=== PATIENT | female | born 1965 | race Caucasian/White ===

== ENCOUNTER 2022-05-22 08:35 | Inpatient (IN) ==
--- NOTE | 2022-05-14 10:37 | Anesthesiology Consultation ---
Date of Service May 14, 2022 Assessment & Plan (1) Encounter for pre-operative examination: Plan - cardiology 04/24/22 [place]: "...well-documented supraventricular tachycardia which appears to be typical AV lyubov reentry at a somewhat slow heart rate (around 130 bpm or little bit faster). This rhythm was converted with adenosine in the emergency room. She does note occasional episodes of an increased heart rate which could be SVT however we do not know her burden. Since she is asymptomatic she could go into this on a sustained basis which could be potentially risky. I discussed options including electrophysiologic study and ablation and I think it is the best option, in part because we do not know the frequency or duration of her arrhythmia. She is agreeable and I will make those arrangements. I do want to get an echocardiogram prior..." - COVID screening: Per anaesthetic technician on 05/14/2022: Travel screen negative, no known COVID-19 positive contacts or current COVID-19 related symptoms in past 2 weeks. To surgeon's discretion if preop COVID testing is needed. - Case discussed with Dr. Nolan who advised patient is acceptable to proceed without further cardiology evaluation or notation prior to surgery from his standpoint. Chart Review Chart Review: Acceptable Risk for Surgery and Patient NOT seen in Pre Admission Testing History Surgery Operation Date: 05/22/22 07:15 Proposed Procedures p Open Recurrent Ventral Hernia Repair, Component Separation, Possible Removal of Old Mesh, Possible Placement of Biological Mesh - Thomas Hopkins DO s Panniculectomy - Thomas Hopkins, Height/Weight Height: 5 ft 6 in Weight: 89.811 kg Allergies Allergy/AdvReac Type Severity Reaction Status Date / Time No Known Drug Allergies Allergy Unknown Verified 05/14/22 09:02 Medications Home Medications Medication Instructions Recorded Confirmed Last Taken Saccharomyces boulardii 250 mg 500 mg PO QAM 02/11/22 05/14/22 Unknown capsule (Daily Probiotic (S. boulardii)) vitamin B complex (B 1 tab PO QAM 02/11/22 05/14/22 Unknown Complex-Vitamin B12 tablet) phenobarbital 32.4 mg tablet 194.4 mg PO QAM 04/14/22 05/14/22 Unknown metoprolol succinate 25 mg 25 mg PO QAM 05/14/22 05/14/22 Unknown tablet,extended release 24 hr Past Medical History Medical History Epilepsy last seizure 15 [address] ago[address] Kaufman in [place]. SVT (supraventricular tachycardia) follows with Dr. Mandel Past Family History Family History Mother H/O heart artery stent Heart disease Father FH: prostate cancer Cancer Grandmother (Maternal) Heart disease Grandfather (Maternal) Heart disease Grandmother (Paternal) Heart disease Grandfather (Paternal) Heart disease Cancer Aunt Cancer Other No family history of adverse response to anesthesia Past Surgical History Surgical History History of bladder surgery Bladder lift History of cardiac radiofrequency ablation unsuccessful per pt History of colonoscopy History of hernia repair History of hysterectomy History of nephrectomy, left as a child "it wasn't functioning" - follows with [facility] in [place]. History of open reduction and internal fixation (ORIF) procedure RLE History of tubal ligation Social History Smoking Status: Current some day smoker tobacco type: cigarettes Smoking cigarettes per day: 1 or 2 on occ Do You Dip or Chew Tobacco: No Hx Alcohol Use: Yes Alcohol type: beer and wine alcohol intake frequency: a few times a week Hx Substance Use: No substance use type: does not use Lab Results Anesthesia Preop Results Results Anesthesia Widget: WBC 6.29 K/ul (4.8-10.8) 04/08/22 Hgb 15.5 g/dl (12.0-16.0) 04/08/22 Hct 46.2 % (34.1-44.9) H 04/08/22 Plt 251 K/uL (130-400) 04/08/22 Na 138 mmol/L (136-145) 04/08/22 K 4.3 mmol/L (3.5-5.1) 04/08/22 Cl 105 mmol/L (98-107) 04/08/22 CO2 25 mmol/L (21-32) 04/08/22 BUN 21 mg/dl (6-23) 04/08/22 Creat 0.78 mg/dl (0.6-1.2) 04/08/22 Glucose Level 90 mg/dl (70-99(Fasting)) 04/08/22 PT 10.3 Seconds (9.0-12.0) 04/08/22 PTT 27.8 Seconds (21.0-31.0) 04/08/22 INR 1.0 (0.9-1.1) 04/08/22 TSH 4.525 uIu/ml (0.300-4.500) H 04/08/22 Free T4 0.68 ng/dl (0.61-1.60) 04/08/22 Testing Electrocardiogram Date: 05/02/22 NSR, rate 76 bpm Possible left atrial enlargement Left axis deviation Chest X-Ray Date: 04/08/22 Lung volumes are normal. Lungs are clear. There is no pneumothorax or pleural effusion. Cardiac size is normal. Mediastinal contours are normal. There is no evidence for pulmonary edema. IMPRESSION: No acute cardiopulmonary findings. Echocardiogram Date: 04/16/22 EF 60-65% Normal LV wall motion No significant valvular disease Other Testing Abdomen pelvis CT 05/01/22 Lung bases: The heart is normal in size and without pericardial effusion. There are coronary artery calcifications. Emphysematous change is suspected. There is bibasilar scarring/atelectasis. No airspace consolidation or pleural effusion is identified. Scattered calcified granulomas are observed. Liver: The contrast-enhanced liver is normal in size, contour, and attenuation. There is no intrahepatic biliary ductal dilatation. The hepatic veins and portal veins are patent. Gallbladder: Contracted. Adrenal glands: Left adrenal adenomas measuring up to 3.3 cm are unchanged. The right adrenal gland is normal appearance. Kidneys: The left kidney is not identified and presumed surgically absent. There is compensatory hypertrophy of the right kidney which is without hydronephrosis. Numerous renal sinus cysts are observed. The right kidney enhances normally. Abdominal vasculature: The abdominal aorta is normal in course and caliber noting mild to moderate atherosclerotic calcification. 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 Bowel: There is mild to moderate colonic fecal retention. No bowel obstruction is seen. The appendix is normal as visualized. Peritoneum: There is no intraperitoneal free air or abdominal ascites. There is a fat-containing umbilical hernia. There is evidence of previous ventral hernia repairs in the pelvis. There is laxity of the ventral wall of the pelvis with protrusion of abdominal contents eccentric to the right. There is infiltration of the soft tissues of the right groin with foci of subcutaneous gas and overlying cutaneous defect. This is best seen on image #[id number]. This region measures approximately 5.5 x 2.5 cm. No organized/drainable fluid collection is seen and there is no CT evidence of pseudoaneurysm. Pelvic viscera: The bladder is normal as visualized. The uterus is surgically absent. No adnexal lesion is seen. Skeletal structures: The skeletal structures are osteopenic. There is mild to moderate lumbosacral spondylosis. Wedging of L5 is similar to previous. No lytic or blastic lesions are seen. IMPRESSION: 1. There is inflammation and subcutaneous gas in the right groin with an overlying cutaneous defect. This likely corresponds to the reported site of IV access. Correlate clinically for evidence of infection. 2. No organized/drainable fluid collection is seen at this site and there is no CT evidence of pseudoaneurysm. 3. There is evidence of previous ventral hernia repairs in the pelvis. There is laxity of the ventral pelvic wall with protrusion of abdominal contents. 4. Solitary right kidney. 5. Additional findings as above.
[~2022-05-22 08:35] MED LIST: LR 15ML/HR IV SCH; SUGAMMADEX SODIUM 200 MG/2 ML VIAL IV ONE
[2022-05-22] MEDS ORDERED: ePHEDrine sulfate 50 MG/ML AMP IV PRN (08:57)
[2022-05-22] MEDS ORDERED: ATROPINE SULFATE 0.1 MG/ML 10ML SYR IV PRN (08:57)
[2022-05-22] MEDS ORDERED: ONDANSETRON INJ 2 MG/ML 2 ML VIAL IV PRN (08:57)
[2022-05-22] MEDS ORDERED: PROPOFOL IV EMULSION 10 MG/ML 20 ML VIAL IV ONE (09:05)
[2022-05-22] MEDS ORDERED: MIDAZOLAM HCL 1 MG/ML 2ML VIAL ONE (09:05)
[2022-05-22] MEDS ORDERED: ROCURONIUM BROMIDE 10 MG/ML 5 ML VIAL IV ONE ×11 (09:05→12:18)
[2022-05-22] MEDS ORDERED: ONDANSETRON INJ 2 MG/ML 2 ML VIAL ONE (09:05)
[2022-05-22] MEDS ORDERED: DEXAMETHASONE SOD INJ 4 MG/ML VIAL ONE (09:05)
[2022-05-22] MEDS ORDERED: fentaNYL citrate 100 MCG/2 ML VIAL ONE ×2 (09:05→12:13)
[2022-05-22] MEDS ORDERED: ceFAZolin 2000MG 2,000 MG/15 ML SYR IV SCH (09:45)
--- NOTE | 2022-05-22 10:31 | History & Physical Report ---
Date of Service May 22, 2022 Assessment & Plan (1) Ventral hernia: Plan: We discussed her options. This is quite painful and uncomfortable for her and limits her ability to ambulate etc. We will plan on performing a panniculectomy with likely removal of prior mesh repair of recurrent hernia possible component separation surgery as needed. We discussed that I am adamant that she no longer smoke. She will need at least 1 night stay in the hospital. I have answered all of her questions. We will proceed today with panniculectomy with open repair of recurrent ventral hernia possible biologic mesh. (2) Abdominal pannus: (3) Abdominal pain: (4) Recurrent ventral hernia: History of Present Illness Primary Care Provider: NO PCP Julia is here for repair of a large ventral hernia. There is a large abdominal mass with eventration of the abdomen. This creates a painful mass/lump. Part of this mass I believe is mesh from prior repair. There is been no changes to her health status since I seen her last in the office. Allergies Allergy/AdvReac Type Severity Reaction Status Date / Time No Known Drug Allergies Allergy Unknown Verified 05/22/22 09:00 Home Medications Medication Instructions Recorded Confirmed Type Saccharomyces boulardii 250 mg 500 mg PO QAM 02/11/22 05/22/22 History capsule (Daily Probiotic (S. boulardii)) vitamin B complex (B 1 tab PO QAM 02/11/22 05/22/22 History Complex-Vitamin B12 tablet) phenobarbital 32.4 mg tablet 194.4 mg PO QAM 04/14/22 05/22/22 History metoprolol succinate 25 mg 25 mg PO QAM 05/14/22 05/22/22 History tablet,extended release 24 hr Past Med/Surg History Medical History Epilepsy last seizure 15 [address] ago[address] Kaufman in [place]. SVT (supraventricular tachycardia) follows with Dr. Mandel Surgical History History of bladder surgery Bladder lift History of cardiac radiofrequency ablation unsuccessful per pt History of colonoscopy History of hernia repair History of hysterectomy History of nephrectomy, left as a child "it wasn't functioning" - follows with [facility] in [place]. History of open reduction and internal fixation (ORIF) procedure RLE History of tubal ligation Family History Mother H/O heart artery stent Heart disease Father FH: prostate cancer Cancer Grandmother (Maternal) Heart disease Grandfather (Maternal) Heart disease Grandmother (Paternal) Heart disease Grandfather (Paternal) Heart disease Cancer Aunt Cancer Other No family history of adverse response to anesthesia Social History Smoking Status: Current some day smoker Tobacco Type: Cigarettes packs per day: 0.5; Cigarettes Per Day: 1 or 2 on occ; Second Hand Exposure: No; Do You Dip or Chew Tobacco: No; Tobacco Cessation Education Requested by Patient: No Hx Alcohol Use: Yes Alcohol type: beer and wine Alcohol Intake Frequency: 2-3 x/Week Hx Substance Use: No Preferred Language: [place] Communication Ability: Effective Set Up Technician Required: No Beliefs That Will Affect Care: None Current Living Situation: Parent current occupational status: employed current occupation: [employer] Feels Safe at Home: Yes Safety Concerns: Feels Safe At This Time during the past year weight has: increased > 10 lbs Sunscreen Use: Yes Assistive Devices: Glasses Review of Systems All systems reviewed & are unremarkable except as noted in HPI & below Physical Exam Constitutional: WD/WN, vitals as above no acute distress and not ill appearing Eyes: PERRL, conjunctivae normal, anicteric sclerae EOM intact bilaterally ENMT: external ear and nose normal, oropharynx normal Ears: no hearing impairment Neck: trachea midline, no thyromegaly Respiratory: normal respiratory effort; no respiratory distress and does not use accessory muscles Cardiovascular: Rate/Rhythm: regular rate and regular rhythm Gastrointestinal (Abdomen): Soft. Multiple lower abdominal incisions. There is a large eventration/mass coming out of her abdomen in the midline and protrudes more to the right side. This is not really reducible was more prominent with standing. There is a generalized weakness in the abdominal wall and what I believe is a true hernia defect on her scar. Skin: no rashes, warm and dry Psychiatric: Orientation: alert, oriented x 3 and cooperative Results & Data ([facility]) Vital Signs (Past 12 Hours) Vital Signs Temp Pulse Resp BP Pulse Ox O2 Del Method 05/22/22 08:57 37 C 70 20 124/70 96 Room Air
[2022-05-22] MEDS ORDERED: BUPIVACAINE/EPINEPHRINE 0.5% MPF 1:200,000 30 ML VIAL ONE (10:41)
[2022-05-22] MEDS ORDERED: ePHEDrine sulfate 50 MG/ML AMP ONE (11:36)
[2022-05-22] MEDS ORDERED: KETAMINE 50 MG/5 ML SYRINGE ONE (12:14)
[2022-05-22] MEDS ORDERED: TISSEEL FIBRIN SEALANT 10ML TOP ONE (12:50)
--- NOTE | 2022-05-22 13:36 | Operative Report ---
PG Post Operative Report Pre & Post Diagnosis Operation Date: 05/22/22 10:15 Pre-Op Diagnosis: Recurrent Ventral Hernia Post-Op Diagnosis: Recurrent Ventral Hernia; abdominal wall laxity; seroma cavity. I identified the patient and participated in the time-out.: Yes Procedure Operation Date: 05/22/22 10:15 Actual Procedures p Open Recurrent Ventral Hernia Repair, Component Separation, Abdominal Wall Reconstruction, Placement of Biological Mesh, Panniculectomy(Not Applicable) - Thomas Hopkins DO s Panniculectomy - Thomas Hopkins DO Surgeon Thomas Hopkins DO Communications Analyst gibson Day Estimated Blood Loss 50 Findings Consistent with Post-Op Diagnosis Specimens abdominal wall scar/seroma cavity. Description of Procedure After informed consent was obtained the patient was taken to the operating room and placed in supine position. After successful intubation a Kelly catheter was placed and the abdomen was sterilely prepped and draped in usual fashion. I began with a hip to hip incision from just above the pubic symphysis with a 15 blade scalpel. This was carried down through the soft tissue using cautery. We readily encountered scar tissue and what I believe is an old seroma cavity. There was a large cavity that was lined with epithelial like tissue although there was no fluid and no sign of infection. We continue to use traction countertraction and cautery to create a skin flap primarily superiorly towards the umbilicus. Once we had her abdominal wall exposed from the pubic symphysis up to the umbilicus I was able to clearly see what was basically in the entire right sided abdominal wall laxity. There was also an actual hernia defect approximately 4 cm in greatest diameter. I remove the scar/seroma cavity using primarily cautery. I was able to see some corkscrew tacks from her prior hernia repair. It appears as though the defect itself was not primarily closed and the majority of the mesh was bulging exteriorly with any sort of Valsalva. I freed up the components of the abdominal wall using blunt dissection as well as small amounts of cautery so that I would be able to freely primarily close the fascia over top of the recurrent defect as well as the old mesh repair. We freed the muscle layers laterally on both sides. I then used #2 Ethibond in simple interrupted fashion to primarily close the fascia again over top of the recurrent hernia defect but also over top of the prior mesh repair to reconstruct the abdominal wall such that the subfascial mesh would not herniate. This extended just to the right of midline from the umbilicus down to the pubic bone. Again this is done with #2 Ethibond in simple erupted fashion. Once we had this primarily closed we thoroughly irrigated all the raw surfaces. We amputated the pannus from just below the umbilicus and passed it off. We placed a 20 cm x 20 cm ovitex biologic mesh with the Prolene backing. This was secured to underlying fascia using 0 Vicryl. The mesh laid nice and flat and tension- free. We thoroughly irrigated all the raw surfaces again. I placed Tisseel sealant over all the raw surfaces. Once this dried we placed two #10 flat Harmeet-Saravia drains through separate stab incisions. We closed the wound in multiple layers using 0 Vicryl for deep layers 2-0 Vicryl for mid layers and 3-0 Monocryl in running subcuticular fashion for the skin. We placed a Prineo glue wound dressing as well as an abdominal binder. The patient was awakened, extubated and transferred to recovery in stable condition. My physician assistant sales director was present for the entire case was instrumental in exposure throughout my dissection assisting with repair of the hernia, abdominal wall reconstruction, mesh placement and wound closure. I attest to the content of the Intraoperative Record and any orders documented therein. Any exceptions are noted below.
[2022-05-22] MEDS: fentaNYL citrate 100 MCG/2 ML VIAL IV PRN ×4 (13:44→14:00)
[2022-05-22] MEDS ORDERED: HYDROmorphone INJ 1 MG/ML SYRINGE ONE (14:13)
[2022-05-22] MEDS: HYDROmorphone INJ 1 MG/ML SYRINGE IV PRN ×4 (14:14→14:30)
--- NOTE | 2022-05-22 14:47 | Anesthesiology Progress Note ---
Date of Service May 22, 2022 Anesthesia Post Procedure Vital Signs Vital Signs: Temp Pulse Resp BP BP Pulse Ox O2 Del Method 05/22/22 14:30 69 10 L 93/55 L 93 Nasal Cannula 05/22/22 14:20 76 20 104/64 104/64 92 Nasal Cannula 05/22/22 14:10 72 17 103/52 L 94 Nasal Cannula 05/22/22 14:00 75 16 106/61 92 Oxymask 05/22/22 13:50 73 14 106/87 94 Oxymask 05/22/22 13:40 78 14 119/60 94 Oxymask 05/22/22 13:34 97.9 F 81 14 119/63 92 Oxymask 05/22/22 08:57 98.6 F 70 20 124/70 96 Room Air O2 Flow Rate 05/22/22 14:30 3 05/22/22 14:20 3 05/22/22 14:10 3 05/22/22 14:00 5 05/22/22 13:50 5 05/22/22 13:40 5 05/22/22 13:34 7 05/22/22 08:57 Pain Intensity Abdomen: Pain Intensity: 5 Transfer of Care Handoff Completed per policy Notes Mental Status: alert / awake / arousable and participated in evaluation Patient Amnestic to Procedure: Yes Nausea / Vomiting: adequately controlled Pain: adequately controlled and improving with treatment Airway Patency, RR, SpO2: stable & adequate BP & HR: stable & adequate Hydration State: stable & adequate Anesthetic Complications: no major complications apparent and Pt Satisfied with anesthetic care
[2022-05-22] MEDS ORDERED: NALOXONE HCL 0.4 MG/1 ML VIAL/CARP IV PRN (15:55)
[2022-05-22] MEDS ORDERED: SODIUM CHLORIDE 0.9% 1000ML 1,000 ML IV SCH (15:55)
[2022-05-22] MEDS ORDERED: HYDROmorphone PCA 30 MG/30 ML IV PRN (15:55)
[2022-05-22] MEDS: ceFAZolin 2000MG 2,000 MG/15 ML SYR IV SCH ×2 (16:45→23:43)
[2022-05-22] MEDS: ACETAMINOPHEN 1,000 MG/100 ML VIAL IV SCH ×2 (16:45→23:43)
[2022-05-22] MEDS: LACTATED RINGER'S 1,000 ML IV SCH (17:43)
--- NOTE | 2022-05-23 00:21 | Communication Note ---
Date of Service: May 23, 2022 I was notified by nurse that patient noted a lump protruding near her right pubic bone near the IRIS drain insertion site. I received this phone call at approximately 12:06 AM. I arrived at the bedside within 5 minutes. Patient's vitals were reviewed blood pressure is 99/64 with a pulse of 66 which is regular. She is afebrile. On interview the patient she notes that her pain is currently well controlled. On physical exam patient's incision is clean, dry, intact both IRIS drains are draining a small amount of serosanguineous fluid. I did discuss with the nurses and they had to end the the drains for approximately 30 cc. On exam the patient does appear to have a lump or collection in the right pubic region near her IRIS drain insertion site. There is not appear to be evidence of expanding hematoma at this time. Both of her IRIS drains were stripped and this did not cause a significant mount of fluid to be drained. The area in question is not warm or painful. Is unclear if the area in question is a hematoma or seroma but we will continue to monitor this clinically.
[2022-05-23] MEDS: LACTATED RINGER'S 1,000 ML IV SCH ×3 (02:22→20:54)
[2022-05-23] MEDS: ONDANSETRON INJ 2 MG/ML 2 ML VIAL IV PRN ×4 (03:18→22:49)
[2022-05-23] MEDS ORDERED: SODIUM CHLORIDE 0.9% 500 ML IV SCH (05:45)
[2022-05-23 07:58] LABS: Basophils # (auto) 0.04 K/uL (0-0.2); Basophils % (auto) 0.4 %; Hematocrit (blood only) 37.9 % (34.1-44.9); Hemoglobin 12.2 g/dl (12.0-16.0); Immature Granulocytes # (auto) 0.06 K/uL (0.00-0.02); Immature Granulocytes % (auto) 0.5 %; Lymphocytes # (auto) 0.73 K/uL (1.2-3.4); Lymphocytes % (auto) 6.5 %; Mean Corpuscular Hemoglobin 30.3 pg (25.0-34.0); Mean Corpuscular Hgb Conc 32.2 g/dL (32.0-36.0); Mean Corpuscular Volume 94.3 fL (80.0-100.0); Mean Platelet Volume 9.3 fL (9.4-12.3); Monocytes # (auto) 0.83 K/uL (0.24-0.82); Monocytes % (auto) 7.4 %; Neutrophils # (auto) 9.54 K/uL (1.4-6.5); Neutrophils % (auto) 85.2 %; Platelet Count 203 K/uL (130-400); RDW Coefficient of Variation 13.2 % (11.5-14.5); RDW Standard Deviation 45.6 fL (36.4-46.3); Red Blood Count 4.02 M/uL (3.93-5.22)
[2022-05-23] MEDS ORDERED: PHENobarbitaL 15 MG TAB PO SCH (09:00)
[2022-05-23] MEDS: ceFAZolin 2000MG 2,000 MG/15 ML SYR IV SCH ×3 (09:07→22:58)
[2022-05-23 10:03] LABS: BUN Creatinine Ratio 14.2 (10-20); Calcium 8.1 mg/dl (8.5-10.1); Creatinine Clr Calc Pharmacy 55.8 ml/min; Est GFR (African American) 54.6 ml/min; Est GFR (Non-African American) 47.1 ml/min; Potassium 4.1 mmol/L (3.5-5.1)
[2022-05-23] MEDS: PHENobarbitaL 30 MG TAB PO SCH (11:10)
[2022-05-23] MEDS: ACETAMINOPHEN 1,000 MG/100 ML VIAL IV SCH (11:13)
[2022-05-23] MEDS: METOPROLOL SUCC 25MG EXT REL TAB PO SCH (11:19)
[2022-05-23] MEDS ORDERED: HYDROCODONE/ACETAMOPHEN 5/325MG TAB PO PRN (11:53)
[2022-05-23] MEDS: HYDROmorphone INJ 1 MG/ML SYRINGE IV PRN ×3 (13:49→22:53)
--- NOTE | 2022-05-23 13:52 | Surgery Progress Note ---
Date of Service May 23, 2022 Assessment & Plan (1) H/O ventral hernia repair: Plan: She is not ready for discharge yet and I am not surprised. This was a rather large complex surgery. We will change her pain medication around and add Phenergan for nausea. Try and increase her activity and ambulate. May need a couple more days in the hospital. Dr. Smith covering for the weekend. Admission and Anticipated Discharge Date Admission Date: May 22, 2022 Subjective Having some pain as well as nausea. She certainly does not feel as though she is ready for discharge yet. Physical Exam Physical Exam: Alert. Mild distress secondary to pain and nausea Her incision looks great JPs with serous fluid output Results & Data ([facility]) Vital Signs (Past 12 Hours) Vital Signs Temp Pulse Resp BP BP Pulse Ox Pulse Ox 05/23/22 11:18 120/77 05/23/22 09:22 05/23/22 09:22 94 05/23/22 08:14 12 90 05/23/22 08:13 87 L 05/23/22 07:51 36.8 C 76 16 114/70 93 05/23/22 05:12 36.6 C 73 14 108/66 94 05/23/22 02:18 36.5 C 69 16 100/63 96 O2 Del Method O2 Del Method O2 Flow Rate O2 Flow Rate 05/23/22 11:18 05/23/22 09:22 Nasal Cannula 4 05/23/22 09:22 Nasal Cannula 4 05/23/22 08:14 Nasal Cannula 4 05/23/22 08:13 Nasal Cannula 3 05/23/22 07:51 Nasal Cannula 3 05/23/22 05:12 Nasal Cannula 3 05/23/22 02:18 Nasal Cannula 3 PG Care Time/CCT Total # of Minutes Spent Total Time Spent with Patient: Total time spent is greater than 50% in coordination of care (as documented) at patient's floor/unit and/or counseling patient: Coding Level of Care Code 88754 Post Operative Follow-Up Diagnoses H/O ventral hernia repair Z98.890; Z87.19
[2022-05-23] MEDS: PROMETHAZINE HCL 12.5 MG in SODIUM CHLORIDE 0.9% 50 ML IV PRN (18:13)
[2022-05-24] MEDS: HYDROmorphone INJ 1 MG/ML SYRINGE IV PRN ×6 (03:20→21:42)
[2022-05-24] MEDS: ONDANSETRON INJ 2 MG/ML 2 ML VIAL IV PRN ×3 (03:20→21:41)
[2022-05-24] MEDS: LACTATED RINGER'S 1,000 ML IV SCH ×3 (05:20→21:43)
[2022-05-24] MEDS: ceFAZolin 2000MG 2,000 MG/15 ML SYR IV SCH ×3 (07:05→23:35)
[2022-05-24 07:53] LABS: Basophils # (auto) 0.02 K/uL (0-0.2); Basophils % (auto) 0.2 %; Hematocrit (blood only) 34.2 % (34.1-44.9); Hemoglobin 11.6 g/dl (12.0-16.0); Immature Granulocytes # (auto) 0.02 K/uL (0.00-0.02); Immature Granulocytes % (auto) 0.2 %; Lymphocytes # (auto) 0.75 K/uL (1.2-3.4); Lymphocytes % (auto) 8.4 %; Mean Corpuscular Hemoglobin 30.7 pg (25.0-34.0); Mean Corpuscular Hgb Conc 33.9 g/dL (32.0-36.0); Mean Corpuscular Volume 90.5 fL (80.0-100.0); Mean Platelet Volume 9.5 fL (9.4-12.3); Monocytes # (auto) 0.74 K/uL (0.24-0.82); Monocytes % (auto) 8.3 %; Neutrophils # (auto) 7.43 K/uL (1.4-6.5); Neutrophils % (auto) 82.9 %; Platelet Count 192 K/uL (130-400); RDW Coefficient of Variation 12.5 % (11.5-14.5); RDW Standard Deviation 41.7 fL (36.4-46.3); Red Blood Count 3.78 M/uL (3.93-5.22); White Blood Count 8.96 K/ul (4.8-10.8)
[2022-05-24 08:35] LABS: Calcium 7.9 mg/dl (8.5-10.1); Potassium 3.8 mmol/L (3.5-5.1)
[2022-05-24 08:42] LABS: BUN Creatinine Ratio 20.3 (10-20); Creatinine Clr Calc Pharmacy 110.8 ml/min; Est GFR (African American) 115.6 ml/min; Est GFR (Non-African American) 99.8 ml/min
[2022-05-24] MEDS: METOPROLOL SUCC 25MG EXT REL TAB PO SCH (09:44)
[2022-05-24] MEDS: ENOXAPARIN INJ 40 MG/0.4 ML SYR SQ SCH (09:44)
[2022-05-24] MEDS: PHENobarbitaL 30 MG TAB PO SCH (09:57)
[2022-05-24] MEDS: ACETAMINOPHEN 325 MG TAB PO PRN ×2 (13:43→23:35)
--- NOTE | 2022-05-24 13:50 | Surgery Progress Note ---
Date of Service May 24, 2022 Assessment & Plan (1) H/O ventral hernia repair: Plan: POD #2, slightly improved from yesterday. Advance diet Ambulate Heparin SQ 3 times daily Out of bed to chair Admission and Anticipated Discharge Date Admission Date: May 22, 2022 Subjective POD #2 ventral hernia repair with panniculectomy, feeling a little better. Nausea is better. Has not been ambulating. Physical Exam Constitutional: WD/WN, vitals as above Gastrointestinal (Abdomen): normal bowel sounds, soft, nontender, no hepatosplenomegaly Inspection/Auscultation: + abdominal surgical incision (Healing well, no infection or seroma/hematoma) and + abdominal surgical drain present (Bilateral drains serosanguineous) Results & Data ([facility]) Vital Signs (Past 12 Hours) Vital Signs Temp Pulse Resp BP Pulse Ox O2 Del Method O2 Flow Rate 05/24/22 07:50 Nasal Cannula 4 05/24/22 07:33 37.7 C H 74 18 119/70 94 Room Air PG Care Time/CCT Total # of Minutes Spent Total Time Spent with Patient: Total time spent is greater than 50% in coordination of care (as documented) at patient's floor/unit and/or counseling patient: Coding Level of Care Code None Diagnoses H/O ventral hernia repair Z98.890; Z87.19
--- NOTE | 2022-05-24 15:05 | Electrocardiogram Report ---
Test Reason : Blood Pressure : / mmHG Vent. Rate : 077 BPM Atrial Rate : 077 BPM P-R Int : 162 ms QRS Dur : 098 ms QT Int : 416 ms P-R-T Axes : 053 -22 035 degrees QTc Int : 470 ms Normal sinus rhythm Left atrial enlargement Incomplete right bundle branch block Borderline ECG When compared with ECG of 08-APR-2022 09:54, No significant change was found Confirmed by Victor Hugo Calix ([id number]) on 05/24/2022 3:04:57 PM Referred By: Thomas Hopkins Confirmed By:Victor Hugo Calix
[2022-05-24] MEDS: HYDROCODONE/ACETAMOPHEN 5/325MG TAB PO PRN (19:37)
[2022-05-25] MEDS: ONDANSETRON INJ 2 MG/ML 2 ML VIAL IV PRN ×2 (02:53→10:23)
[2022-05-25] MEDS: HYDROCODONE/ACETAMOPHEN 5/325MG TAB PO PRN ×3 (02:56→14:34)
[2022-05-25] MEDS: LACTATED RINGER'S 1,000 ML IV SCH (06:20)
[2022-05-25] MEDS: ACETAMINOPHEN 325 MG TAB PO PRN (06:24)
[2022-05-25 07:05] LABS: Basophils # (auto) 0.03 K/uL (0-0.2); Basophils % (auto) 0.5 %; Hematocrit (blood only) 34.2 % (34.1-44.9); Hemoglobin 11.4 g/dl (12.0-16.0); Immature Granulocytes # (auto) 0.09 K/uL (0.00-0.02); Immature Granulocytes % (auto) 1.4 %; Lymphocytes # (auto) 0.94 K/uL (1.2-3.4); Lymphocytes % (auto) 14.6 %; Mean Corpuscular Hemoglobin 30.7 pg (25.0-34.0); Mean Corpuscular Hgb Conc 33.3 g/dL (32.0-36.0); Mean Corpuscular Volume 92.2 fL (80.0-100.0); Mean Platelet Volume 9.6 fL (9.4-12.3); Monocytes # (auto) 0.63 K/uL (0.24-0.82); Monocytes % (auto) 9.8 %; Neutrophils # (auto) 4.73 K/uL (1.4-6.5); Neutrophils % (auto) 73.7 %; Platelet Count 170 K/uL (130-400); RDW Coefficient of Variation 12.5 % (11.5-14.5); RDW Standard Deviation 41.8 fL (36.4-46.3); Red Blood Count 3.71 M/uL (3.93-5.22); White Blood Count 6.42 K/ul (4.8-10.8)
[2022-05-25 07:33] LABS: Calcium 8.1 mg/dl (8.5-10.1); Potassium 4.1 mmol/L (3.5-5.1)
[2022-05-25 07:38] LABS: BUN Creatinine Ratio 15.8 (10-20); Creatinine Clr Calc Pharmacy 124.4 ml/min; Est GFR (African American) 120.1 ml/min; Est GFR (Non-African American) 103.6 ml/min
[2022-05-25] MEDS: ceFAZolin 2000MG 2,000 MG/15 ML SYR IV SCH ×3 (08:59→23:33)
[2022-05-25] MEDS: METOPROLOL SUCC 25MG EXT REL TAB PO SCH (09:00)
[2022-05-25] MEDS: ENOXAPARIN INJ 40 MG/0.4 ML SYR SQ SCH (09:00)
--- NOTE | 2022-05-25 10:01 | Surgery Progress Note ---
Date of Service May 25, 2022 Assessment & Plan (1) H/O ventral hernia repair: Plan: POD #3- slowly improving. Awaiting hospitalist consult for hypoxia, appreciate recommendations. Incentive spirometer, out of bed, and ambulating in hallway were highly encouraged. Dilaudid was discontinued and PO pain medication was encouraged. She also has PRN Tylenol on board as well. Dr. Hopkins to resume care tomorrow. Patient seen and examined with Dr. Smith. POD #2, slightly improved from yesterday. Advance diet Ambulate Heparin SQ 3 times daily Out of bed to chair Admission and Anticipated Discharge Date Admission Date: May 22, 2022 Supervising Physician Co-Signing Physician Notes Patient seen examined, agree with above. Status post ventral hernia repair with panniculectomy. Requiring 3 L of oxygen this morning. States they do not have her dose of phenobarbital. States her pain meds were switched and that only Dilaudid works for her. Otherwise appears to be doing quite well. Incision without infection, no significant seroma/hematoma. IRIS drain serosanguineous. Medicine consult for new hypoxia, will transition to oral pain meds. If these are ineffective then she can discuss oral Dilaudid with Dr. Hopkins tomorrow. I-S, out of bed to chair, ambulation. Subjective Julia is sitting out of bed in chair eating breakfast. She reports that she is hungry and would like to try some regular food. She has been trying to get out of bed and walk more. She is passing gas. She does report that she is concerned about her pain medication. She states that Dilaudid is the "only thing that works for her" and that she was given Dilaudid to use at home while in [place] and [facility]. Per nursing, patient's O2 saturation level kept dropping this morning. Consult to hospitalist was placed for post-op hypoxia. Review of Systems Constitutional: no fever and no chills Respiratory: no cough, no chest congestion and no dyspnea Gastrointestinal: + abdominal pain (expected abdominal pain at incision sites. ) Physical Exam Constitutional: WD/WN, vitals as above Respiratory: normal respiratory effort; no respiratory distress and no labored breathing Gastrointestinal (Abdomen): Abdominal binder removed to view incisions and IRIS drains. IRIS drains with serosang output, holding suction. Abdominal incisions are CDI with no signs of infection. Abdominal binder reattached. Results & Data ([facility]) Vital Signs (Past 12 Hours) Vital Signs Temp Pulse Resp BP Pulse Ox O2 Del Method O2 Flow Rate 05/25/22 07:23 37.1 C 71 16 120/76 95 Nasal Cannula 3 PG Care Time/CCT Total # of Minutes Spent Total Time Spent with Patient: Total time spent is greater than 50% in coordination of care (as documented) at patient's floor/unit and/or counseling patient: Coding Level of Care Code None Diagnoses H/O ventral hernia repair Z98.890; Z87.19
--- NOTE | 2022-05-25 10:05 | Hospitalist Consultation ---
Date of Consultation May 25, 2022 Assessment & Plan (1) Acute respiratory failure with hypoxia: Acute hypoxic respiratory failure, suspect 2/2 pulmonary edema CXR: 1. Cardiomegaly with mild pulmonary edema. 2. Trace pleural effusions with mild bibasilar densities suggestive of atelectasis. CXR was independently reviewed at time of bedside imaging. EKG 05/23 NSR, incomplete right bundle branch block, QTC 470. No significant change from prior. No evidence of right heart strain. No history of heart failure, has a history of SVT which was terminated previously with adenosine. No evidence of dysrhythmia at this time - Echo 04/16/2022 with EF 60 to 65%, normal LV SF, normal structure and function of the LV. Patient is net 1.25 L positive, and is tolerating p.o. fluids discontinued. Lasix IV 20 mg x 1 given Patient with chronic leg swelling due to traumatic injury which has not changed, and evidence of pulmonary edema. Is on DVT pharmacal prophylaxis. Low suspicion for PE at this time. ? Underlying COPD With more than 30 years of tobacco use, 0.5 pack/day recently quit 4 to 6 weeks ago No diagnosed COPD, but has not been worked up for this. 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 Follow-up EP study 05/01 with radiofrequency ablation, however this was not felt to be successful. Patient was placed on metoprolol, has not had recurrence of rhythm since Continue metoprolol Currently rate of 70s while in room, regular Solitary kidney S/p left nephrectomy at age 9 due to congenital defects Patient denies any problems other than this, no history of kidney failure Has had normal urine output without dysuria, light in color BMP daily History of seizures Patient reports she has been on phenobarbital for many years. Was originally on Dilantin/Depakote but was switched to that she should become . Following she felt medication worked well and had no side effects from it, so deferred switch back to any alternative agents and follow-up with her neurologist Has recently moved to [place], her neurologist is in [facility]. Would like facilitation with a local specialist for routine follow-up. Care management Patient recently moved to [place] this year, her specialists reside in [facility]. She would like to establish with a PCP, neurologist, and barrelhead inspector while here. For PCP would like to establish with someone near her home in [place] For neurology follow-up of epilepsy and nephrology follow-up for solitary kidney would like to establish locally with [facility] and will travel for appointments Case management consult placed DVT prophylaxis: Per primary team, currently on Lovenox Diet: Regular Disposition: Medical/surgical. If she becomes tachycardic, transfer to telemetry given history of AVNRT CODE STATUS: Full code (2) Seizures: (3) Solitary kidney: (4) Epilepsy: (5) SVT (supraventricular tachycardia): History of Present Illness Attending Physician: Thomas Hopkins, DO History of Present Illness Sabrina is a 56-year-old female with a past medical history of seizures, SVT who presented for management of a recurrent ventral hernia, abdominal wall laxity, and seroma cavity who is s/p Open Recurrent Ventral Hernia Repair, Component Separation, Abdominal Wall Reconstruction, Placement of Biological Mesh, Panniculectomy 05/22/[address] Hopkins. She does not have a home oxygen requirement, but has been requiring 3 L of nasal cannula oxygen during admission. We have been consulted for assessment and management of hypoxic respiratory failure. Julia is seen at the bedside. She reports that she feels okay, has some postsurgical pain at her incisions but this is gradually improving. She does feel "full of fluid ". She reports she is not short of breath at time of bedsid e assessment, she is sitting in bed not on nasal cannula. She reports she fatigues easily and does get a little short of breath with ambulation to the bathroom and has been told her oxygen levels dropped. She has had some wheezing with exertion per nursing, patient reports that she has not had wheezing prior to her hospital admission. She recently quit smoking 4-6 weeks ago, prior to this was a 0.5 pack/day smoker for her entire life, greater than 35 years. She does not have a diagnosis of COPD, but has also not been evaluated for this in the past and has never had an oxygen requirement. She has no history of heart failure or heart attacks, was recently seen for SVT and had electrophysiology follow-up. She reports that they were going to do an ablation, however her AVNRT is not amenable to this and was placed on metoprolol which she has been taking daily without recurrence. She was asymptomatic during her AVNRT episode which terminated with adenosine. She has chronic swelling in her right leg due to hardware after she fell from her attic and sustained tibia, fibula, and clavicular fractures and was in a wheelchair for several months. She reports her right leg is at baseline with no new or increased swelling, and has no pain. She reports she has been peeing normally, does have a solitary kidney as she had 1 kidney removed at 9 years old due to a congenital defect. She has followed with nephrology as an outpatient in [place], has not had any other renal problems but has not established with a barrelhead inspector since moving to [place] several weeks ago. She had a history of seizure over 10 years ago for which she was placed on Depakote and Dilantin. This was switched to phenobarbital when she was to get , following she continued on phenobarbital and had discussed switching to unassertive agent with her neurologist in [place] but being that it was working well with minimal side effects deferred a switch over the last few years. Is continued on phenobarbital 32.4 mg x 6 tablets daily with no recent seizures or seizure activity. Would appreciate a referral to a local neurologist now that she is moved to [place]. She does not use alcohol, and denies recreational drug use. No known drug allergies. Full code. Allergies Allergy/AdvReac Type Severity Reaction Status Date / Time No Known Drug Allergies Allergy Unknown Verified 05/22/22 09:00 Home Medications Medication Instructions Recorded Confirmed Type Saccharomyces boulardii 250 mg 500 mg PO QAM 02/11/22 05/22/22 History capsule (Daily Probiotic (S. boulardii)) vitamin B complex (B 1 tab PO QAM 02/11/22 05/22/22 History Complex-Vitamin B12 tablet) phenobarbital 32.4 mg tablet 194.4 mg PO QAM 04/14/22 05/22/22 History metoprolol succinate 25 mg 25 mg PO QAM 05/14/22 05/22/22 History tablet,extended release 24 hr hydrocodone 5 mg-acetaminophen 325 1 - 2 tab PO .q4h- q6h PRN pain, 05/23/22 Rx mg tablet for initial therapy, max 6 tabs per day #18 tabs Patient History Medical History (Updated 05/25/22 @ 11:00 by Elier Gracia MD) Epilepsy last seizure 15 [address] ago[address] Kaufman in [place]. SVT (supraventricular tachycardia) follows with Dr. Mandel Surgical History H/O ventral hernia repair (05/22/22) Open Recurrent Ventral Hernia Repair, Component Separation, Abdominal Wall Reconstruction, Placement of Biological Mesh, Panniculectomy(Not Applicable) - Thomas Hopkins DO s Panniculectomy - Thomas Hopkins DO History of bladder surgery Bladder lift History of cardiac radiofrequency ablation unsuccessful per pt History of colonoscopy History of hernia repair History of hysterectomy History of nephrectomy, left as a child "it wasn't functioning" - follows with [facility] in [place]. History of open reduction and internal fixation (ORIF) procedure RLE History of tubal ligation Family History Mother H/O heart artery stent Heart disease Father FH: prostate cancer Cancer Grandmother (Maternal) Heart disease Grandfather (Maternal) Heart disease Grandmother (Paternal) Heart disease Grandfather (Paternal) Heart disease Cancer Aunt Cancer Other No family history of adverse response to anesthesia Social History Smoking Status: Current some day smoker Tobacco Type: Cigarettes packs per day: 0.5; Cigarettes Per Day: 1 or 2 on occ; Second Hand Exposure: No; Do You Dip or Chew Tobacco: No; Tobacco Cessation Education Requested by Patient: No Hx Alcohol Use: Yes Alcohol type: beer and wine Alcohol Intake Frequency: 2-3 x/Week Hx Substance Use: No Preferred Language: Greenlandic Communication Ability: Effective 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 NAD. Cooperative. HEENT: Atraumatic, normocephalic. Vision/hearing grossly intact Pulm: Bibasilar crackles, faint end expiratory wheeze on forced expiration otherwise no wheezing symmetrical chest rise. No increased work of breathing. No respiratory distress. Cardiac: RRR, -mrg. Radial pulses intact and symmetrical. Abdominal: Multiple lower abdominal incisions with right-sided and left-sided IRIS drain in place draining serosanguineous material. Abdominal binder is in place. Surgical dressing C/D/I. Focally tender on palpation around surgical site, no rigidity/guarding/rebound tenderness Extremities: Right ankle trace edema sensation soft touch in hands and feet bilateral without asymmetry, moving all extremities equally. Results & Data Results & Data ([facility]) Vital Signs (Past 12 Hours) Vital Signs Temp Pulse Resp BP Pulse Ox O2 Del Method O2 Flow Rate 05/25/22 07:23 37.1 C 71 16 120/76 95 Nasal Cannula 3 PG Care Time/CCT Total # of Minutes Spent Total Time Spent with Patient: Total time spent is greater than 50% in coordination of care (as documented) at patient's floor/unit and/or counseling patient: Coding Level of Care Code INP/OBS CONSULT LVL 4, 60 MIN Diagnoses Acute respiratory failure with hypoxia J96.01 Seizures R56.9 Solitary kidney Epilepsy G40.909 SVT (supraventricular tachycardia) I47.1
[2022-05-25] MEDS: PHENobarbitaL 30 MG TAB PO SCH (10:08)
--- NOTE | 2022-05-25 10:40 | XRay Report ---
XR chest 1V portable HISTORY: 56 years-old Female hypoxia acute hypoxia COMPARISON: Chest radiograph 04/08/2022 TECHNIQUE: AP view of the chest FINDINGS: Cardiac silhouette is enlarged. Pulmonary vascular congestion with interstitial coarsening. Trace ple ural effusions with mild bibasilar densities. Degenerative changes of the shoulders and spine. IMPRESSION: 1. Cardiomegaly with mild pulmonary edema. 2. Trace pleural effusions with mild bibasilar densities suggestive of atelectasis. ACT 112: Negative or not required by law. The above report was generated using voice recognition software. It may contain grammatical, syntax o r spelling errors. Electronically signed by: Vladimir Hand M.D. 05/25/2022 10:38 AM
[2022-05-25] MEDS ORDERED: FUROSEMIDE INJ 20 MG/2 ML VIAL IV ONE (10:47)
[2022-05-25] MEDS ORDERED: LEVALBUTEROL HCL 1.25 MG/3 ML NEB NEB PRN (11:01)
[2022-05-25] MEDS ORDERED: KETOROLAC TROMETHAMINE 15 MG/ML VIAL IV ONE (12:34)
[2022-05-25] MEDS ORDERED: FUROSEMIDE 20 MG TAB PO ONE (17:00)
[2022-05-25] MEDS: KETOROLAC TROMETHAMINE 15 MG/ML VIAL IV PRN (19:04)
[2022-05-25] MEDS: ACETAMINOPHEN 325 MG TAB PO SCH (20:10)
[2022-05-25] MEDS: oxyCODONE HCL IR 5 MG TAB (IMMEDIATE RELEASE) PO PRN (23:33)
[2022-05-26] MEDS: ACETAMINOPHEN 325 MG TAB PO SCH ×4 (01:24→18:33)
[2022-05-26] MEDS: ceFAZolin 2000MG 2,000 MG/15 ML SYR IV SCH ×3 (07:21→22:59)
[2022-05-26] MEDS: METOPROLOL SUCC 25MG EXT REL TAB PO SCH (07:23)
[2022-05-26] MEDS: ENOXAPARIN INJ 40 MG/0.4 ML SYR SQ SCH (07:24)
[2022-05-26 07:25] LABS: Basophils # (auto) 0.03 K/uL (0-0.2); Basophils % (auto) 0.5 %; Eosinophils # (auto) 0.17 K/uL (0-0.50); Eosinophils % (auto) 3.1 %; Hematocrit (blood only) 35.1 % (34.1-44.9); Immature Granulocytes # (auto) 0.01 K/uL (0.00-0.02); Immature Granulocytes % (auto) 0.2 %; Lymphocytes # (auto) 0.84 K/uL (1.2-3.4); Lymphocytes % (auto) 15.1 %; Mean Corpuscular Hemoglobin 30.9 pg (25.0-34.0); Mean Corpuscular Hgb Conc 34.2 g/dL (32.0-36.0); Mean Corpuscular Volume 90.5 fL (80.0-100.0); Mean Platelet Volume 9.6 fL (9.4-12.3); Monocytes # (auto) 0.63 K/uL (0.24-0.82); Monocytes % (auto) 11.4 %; Neutrophils # (auto) 3.87 K/uL (1.4-6.5); Neutrophils % (auto) 69.7 %; Platelet Count 180 K/uL (130-400); RDW Coefficient of Variation 12.4 % (11.5-14.5); RDW Standard Deviation 40.4 fL (36.4-46.3); Red Blood Count 3.88 M/uL (3.93-5.22); White Blood Count 5.55 K/ul (4.8-10.8)
[2022-05-26 07:46] LABS: BUN Creatinine Ratio 17.9 (10-20); Calcium 8.3 mg/dl (8.5-10.1); Creatinine Clr Calc Pharmacy 126.6 ml/min; Est GFR (African American) 120.8 ml/min; Est GFR (Non-African American) 104.2 ml/min; Potassium 3.5 mmol/L (3.5-5.1)
[2022-05-26] MEDS: PHENobarbitaL 30 MG TAB PO SCH (08:52)
[2022-05-26] MEDS ORDERED: POTASSIUM CHLORIDE CRTAB 20 MEQ TABCR PO STA (11:14)
--- NOTE | 2022-05-26 11:14 | Hospitalist Progress Note ---
Date of Service May 26, 2022 Assessment & Plan (1) Acute postoperative respiratory insufficiency: Plan: 2nd to acute pulmonary edema? atelectasis? underlying COPD (chronic tobacco dependence)? combination? s/p 2 doses of lasix yesterday with stable BMP today. will give another dose of lasix today. cont incentive susan. add flutter valve. schedule ventolin 2 puffs qid. re-eval tomorrow. wean o2 to off as tolerated. (2) Acute pulmonary edema: Plan: as above in #1 (3) Ventral hernia: Plan: POD #4 - s/p ventral hernia repair by Dr Hopkins (4) Solitary kidney: Plan: noted bmp in am for stability (5) Epilepsy: Plan: check phenobarbital level in am (6) SVT (supraventricular tachycardia): Plan: history of examines in NSR today follows with Dr Julian cont metoprolol succinate 25mg daily (7) Tobacco dependence: Plan: could have underlying COPD wheezes on exam today schedule albuterol qid Admission and Anticipated Discharge Date Admission Date: May 22, 2022 Subjective patient reports just mild MORALES when walking in hallway this am typically does NOT have such at home denies orthopnea denies chest pain; denies pleuritic chest pain denies LE edema passing flatus does feel better s/p 2 doses of lasix yesterday Review of Systems Review of Systems: gen - eating ok cv - no chest pain pulm - no cough GI - appropriate incisional pain; no vomiting Physical Exam Physical Exam: gen - NAD, pleasant neck - no JVD heart - RRR, s1 s2, no murmur lungs - end-exp wheezes, b/l basilar rales, no distress abd - mildly distended, BS+, tender (incisional) ext - no edema, pusles 2+ b/l Results & Data Results & Data ([facility]) Vital Signs (Past 12 Hours) Vital Signs Temp Pulse Resp BP BP Pulse Ox Pulse Ox 05/26/22 08:37 05/26/22 07:30 92 05/26/22 07:28 91 05/26/22 07:19 36.8 C 73 16 123/77 94 05/25/22 23:37 36.9 C 69 18 108/67 95 O2 Del Method O2 Del Method O2 Flow Rate 05/26/22 08:37 Nasal Cannula 1 05/26/22 07:30 Nasal Cannula 1 05/26/22 07:28 Room Air 05/26/22 07:19 Nasal Cannula 2 05/25/22 23:37 Nasal Cannula 2 Laboratory Results Laboratory Results - last 24 hr 05/26/22 05/26/22 06:55 06:55 WBC 5.55 RBC 3.88 L Hgb 12.0 Hct 35.1 MCV 90.5 MCH 30.9 MCHC 34.2 RDW Std Deviation 40.4 RDW Coeff of Laura 12.4 Plt Count 180 MPV 9.6 Immature Gran % (Auto) 0.2 Neut % (Auto) 69.7 Lymph % (Auto) 15.1 Morrill % (Auto) 11.4 Eos % (Auto) 3.1 Baso % (Auto) 0.5 Neut # (Auto) 3.87 Lymph # (Auto) 0.84 L Morrill # (Auto) 0.63 Eos # (Auto) 0.17 Baso # (Auto) 0.03 Immature Gran # (Auto) 0.01 Sodium 138 Potassium 3.5 Chloride 102 Carbon Dioxide 32 Anion Gap 4 BUN 10 Creatinine 0.56 L Est Cr Clr Drug Dosing 126.6 Est GFR ( Amer) 120.8 Est GFR (Non-Af Amer) 104.2 BUN/Creatinine Ratio 17.9 Glucose 89 Calcium 8.3 L Diagnostic Findings cxr 05/25 - pulm edema PG Care Time/CCT Total # of Minutes Spent Total Time Spent with Patient: Total time spent is greater than 50% in coordination of care (as documented) at patient's floor/unit and/or counseling patient: Coding Level of Care Code 11121 SUB INP/OBS CARE 2/35MIN Diagnoses Acute postoperative respiratory insufficiency J95.89 Acute pulmonary edema J81.0 Ventral hernia K43.9 Solitary kidney Epilepsy G40.909 SVT (supraventricular tachycardia) I47.1 Tobacco dependence F17.200
--- NOTE | 2022-05-26 11:18 | Surgery Progress Note ---
Date of Service May 26, 2022 Assessment & Plan (1) H/O ventral hernia repair: Plan: Doing well. I will reach out to internal medicine and see if they are okay with her leaving since she is still on 1 L of oxygen. We went over IRIS care as well as wound care. I would like to see her in about a week in the office for follow-up. Admission and Anticipated Discharge Date Admission Date: May 22, 2022 Subjective Patient continues to improve each day. She would like to go home if possible today. Physical Exam Physical Exam: Alert. No acute distress Her incision looks good with no drainage or sign of infection Both IRIS drains with serous output Results & Data ([facility]) Vital Signs (Past 12 Hours) Vital Signs Temp Pulse Resp BP BP Pulse Ox Pulse Ox 05/26/22 08:37 05/26/22 07:30 92 05/26/22 07:28 91 05/26/22 07:19 36.8 C 73 16 123/77 94 05/25/22 23:37 36.9 C 69 18 108/67 95 O2 Del Method O2 Del Method O2 Flow Rate 05/26/22 08:37 Nasal Cannula 1 05/26/22 07:30 Nasal Cannula 1 05/26/22 07:28 Room Air 05/26/22 07:19 Nasal Cannula 2 05/25/22 23:37 Nasal Cannula 2 PG Care Time/CCT Total # of Minutes Spent Total Time Spent with Patient: Total time spent is greater than 50% in coordination of care (as documented) at patient's floor/unit and/or counseling patient: Coding Level of Care Code 65070 Post Operative Follow-Up Diagnoses H/O ventral hernia repair Z98.890; Z87.19
[2022-05-26] MEDS ORDERED: MAGNESIUM OXIDE 400 MG TAB PO ONE (11:30)
[2022-05-26] MEDS ORDERED: FUROSEMIDE 20 MG TAB PO ONE (11:30)
[2022-05-26] MEDS: ALBUTEROL HFA 8 GM INHALER INH SCH ×2 (13:20→19:50)
[2022-05-26] MEDS: oxyCODONE HCL IR 5 MG TAB (IMMEDIATE RELEASE) PO PRN (18:32)
[2022-05-26] MEDS ORDERED: HYDROCORTISONE 2.5% CR 30 GM TUBE EXT PRN (23:41)
[2022-05-26] MEDS: KETOROLAC TROMETHAMINE 15 MG/ML VIAL IV PRN (23:53)
[2022-05-27] MEDS: PROMETHAZINE HCL 12.5 MG in SODIUM CHLORIDE 0.9% 50 ML IV PRN (01:03)
[2022-05-27] MEDS: ACETAMINOPHEN 325 MG TAB PO SCH ×2 (01:19→08:24)
[2022-05-27] MEDS: oxyCODONE HCL IR 5 MG TAB (IMMEDIATE RELEASE) PO PRN (03:20)
[2022-05-27] MEDS ORDERED: PHENobarbitaL 30 MG TAB PO SCH (04:00)
[2022-05-27] MEDS: ALBUTEROL HFA 8 GM INHALER INH SCH ×3 (07:11→14:29)
[2022-05-27] MEDS: METOPROLOL SUCC 25MG EXT REL TAB PO SCH (08:24)
[2022-05-27] MEDS: ENOXAPARIN INJ 40 MG/0.4 ML SYR SQ SCH (08:25)
[2022-05-27] MEDS: ceFAZolin 2000MG 2,000 MG/15 ML SYR IV SCH (08:26)
--- NOTE | 2022-05-27 08:36 | Surgery Progress Note ---
Date of Service May 27, 2022 Assessment & Plan (1) H/O ventral hernia repair: Plan: Doing well from my standpoint. Will discuss with medicine. Appreciate their assistance. Discharge home once they give their blessing. (2) Acute postoperative respiratory insufficiency: Admission and Anticipated Discharge Date Admission Date: May 22, 2022 Subjective Patient seen. Feeling well. Would like to go home. Physical Exam Physical Exam: Alert. No acute distress Abdomen is soft. Drains look good as does her incision Results & Data ([facility]) Vital Signs (Past 12 Hours) Vital Signs Temp Pulse Resp BP Pulse Ox O2 Del Method 05/27/22 07:32 37.4 C 77 18 115/74 91 Room Air 05/27/22 07:14 74 16 94 Room Air 05/26/22 21:26 37 C 44 L 18 107/61 98 Room Air PG Care Time/CCT Total # of Minutes Spent Total Time Spent with Patient: Total time spent is greater than 50% in coordination of care (as documented) at patient's floor/unit and/or counseling patient: Coding Level of Care Code 46227 Post Operative Follow-Up Diagnoses H/O ventral hernia repair Z98.890; Z87.19 Acute postoperative respiratory insufficiency J95.89
[2022-05-27 08:58] LABS: BUN Creatinine Ratio 14.7 (10-20); Calcium 8.3 mg/dl (8.5-10.1); Creatinine Clr Calc Pharmacy 104.3 ml/min; Est GFR (African American) 113.3 ml/min; Est GFR (Non-African American) 97.8 ml/min; Magnesium 1.6 mg/dl (1.7-2.4); Potassium 3.3 mmol/L (3.5-5.1)
[2022-05-27] MEDS ORDERED: POTASSIUM CHLORIDE CRTAB 20 MEQ TABCR PO STA (09:19)
[2022-05-27] MEDS ORDERED: MAGNESIUM SULFATE / D5W 1 GM/100 ML BAG IV ONE (09:19)
--- NOTE | 2022-05-27 10:57 | Hospitalist Progress Note ---
Date of Service May 27, 2022 Assessment & Plan (1) Acute postoperative respiratory insufficiency: Plan: suspect combination of acute pulmonary edema (resolved) + atelectasis + suspected underlying COPD (chronic tobacco dependence). acute postop resp insufficiency resolved. o2 sats wnl at rest. 2-step O2 ambulatory test normal. no further diuretics. cont incentive susan and flutter valve upon discharge. I do not believe that today's cxr findings represent pneumonia. cont ventolin 2 puffs qid prn. will send to [facility] Pulmonary post-discharge for PFTs, etc. (2) Acute pulmonary edema: Plan: as above in #1 resolved s/p lasix x 3 doses (3) Ventral hernia: Plan: POD #5 - s/p ventral hernia repair by Dr Hopkins doing well from surgical standpoint (4) Solitary kidney: Plan: creatinine remains stable (5) Epilepsy: Plan: phenobarbital level returned at 24 today (therapeutic) (6) SVT (supraventricular tachycardia): Plan: history of again examines in NSR today follows with Dr Julian cont metoprolol succinate 25mg daily (7) Tobacco dependence: Plan: could have underlying COPD wheezes on exam heard yesterday improved with albuterol qid will send home with albuterol prn f/u with [facility] Pulmonary post discharge for PFTs (8) Hypokalemia: Plan: replace with PO supplementation today replace low mag as well (9) Hypomagnesemia: Plan: IV mag sulfate 1gm x 1 replace low K as well Plan ok from medical standpoint to d/c home today following electrolyte replacement Admission and Anticipated Discharge Date Admission Date: May 22, 2022 Subjective patient feeling well today no dyspnea at rest no dyspnea with exertion passed 2-step O2 test today mild incisional pain from recent abdominal surgery no O2 requirement overnight Review of Systems Review of Systems: gen - feels good, decent appetite cv - no orthopnea, no chest pain pulm - no cough GI - no nausea or emesis; + flatus Physical Exam Physical Exam: gen - NAD neck - no JVD mouth - MMM heart - RRR, s1 s2, no murmur lungs - end-exp wheezes resolved; b/l basilar rales - fine, dry; no distress; normal airation abd - mildly distended, BS+, nontender; abdominal binder in place ext - no edema, pulses 2+ b/l Results & Data Results & Data ([facility]) Vital Signs (Past 12 Hours) Vital Signs Temp Pulse Resp BP Pulse Ox Pulse Ox O2 Del Method 05/27/22 10:42 80 18 95 Room Air 05/27/22 09:00 94 05/27/22 07:32 37.4 C 77 18 115/74 91 Room Air 05/27/22 07:14 74 16 94 Room Air O2 Del Method 05/27/22 10:42 05/27/22 09:00 Room Air 05/27/22 07:32 05/27/22 07:14 Laboratory Results Laboratory Results - last 24 hr 05/27/22 05/27/22 07:58 07:58 Sodium 139 Potassium 3.3 L Chloride 104 Carbon Dioxide 31 Anion Gap 4 BUN 10 Creatinine 0.68 Est Cr Clr Drug Dosing 104.3 Est GFR ( Amer) 113.3 Est GFR (Non-Af Amer) 97.8 BUN/Creatinine Ratio 14.7 Glucose 95 Calcium 8.3 L Magnesium 1.6 L Phenobarbital Pending Diagnostic Findings Chest X-Ray 05/25/22 10:09 XR chest 1V portable HISTORY: 56 years-old Female hypoxia acute hypoxia COMPARISON: Chest radiograph 04/08/2022 TECHNIQUE: AP view of the chest FINDINGS: Cardiac silhouette is enlarged. Pulmonary vascular congestion with interstitial coarsening. Trace pleural effusions with mild bibasilar densities. Degenerative changes of the shoulders and spine. IMPRESSION: 1. Cardiomegaly with mild pulmonary edema. 2. Trace pleural effusions with mild bibasilar densities suggestive of atelectasis. ACT 112: Negative or not required by law. The above report was generated using voice recognition software. It may contain grammatical, syntax or spelling errors. Electronically signed by: Vladimir Hand M.D. 05/25/2022 10:38 AM Chest X-Ray 05/27/22 00:00 XR chest 2V PA/lateral CLINICAL HISTORY: hypoxia, b/l basilar rales TECHNIQUE: 2 views of the chest were obtained. Comparison: Comparison is made to chest radiograph 05/25/2022 FINDINGS: No lines and tubes are seen. Cardiomegaly is noted. Right medial lung base airspace opacities are seen, slightly increased from prior exam. No evidence of pleural effusion or pneumothorax. IMPRESSION: Right lung base airspace opacities which may represent atelectasis, pneumonia, and/or aspiration. ACT 112: Negative or not required by law. Electronically signed by: Elroy Bullock M.D. 05/27/2022 1:48 PM PG Care Time/CCT Total # of Minutes Spent Total Time Spent with Patient: Total time spent is greater than 50% in coordination of care (as documented) at patient's floor/unit and/or counseling patient: Coding Level of Care Code 21073 SUB INP/OBS CARE 3/50MIN Diagnoses Acute postoperative respiratory insufficiency J95.89 Acute pulmonary edema J81.0 Ventral hernia K43.9 Solitary kidney Epilepsy G40.909 SVT (supraventricular tachycardia) I47.1 Tobacco dependence F17.200 Hypokalemia E87.6 Hypomagnesemia E83.42
--- NOTE | 2022-05-27 13:49 | XRay Report ---
XR chest 2V PA/lateral CLINICAL HISTORY: hypoxia, b/l basilar rales TECHNIQUE: 2 views of the chest were obtained. Comparison: Comparison is made to chest radiograph 05/25/2022 FINDINGS: No lines and tubes are seen. Cardiomegaly is noted. Right medial lung base airspace opacities are see n, slightly increased from prior exam. No evidence of pleural effusion or pneumothorax. IMPRESSION: Right lung base airspace opacities which may represent atelectasis, pneumonia, and/or aspiration. ACT 112: Negative or not required by law. Electronically signed by: Elroy Bullock M.D. 05/27/2022 1:48 PM
[2022-05-27] MEDS ORDERED: Nursing to Pharmacy Communication SCH (14:00)
--- NOTE | 2022-05-28 13:37 | Discharge Summary ---
Date of Service May 27, 2022 Admission HPI Per Admitting Provider Julia is here for repair of a large ventral hernia. There is a large abdominal mass with eventration of the abdomen. This creates a painful mass/lump. Part of this mass I believe is mesh from prior repair. There is been no changes to her health status since I seen her last in the office. Principal Diagnosis h/o ventral hernia repair panniculectomy seizures Discharge Exam awake/alert, no distress Respiratory normal respiratory effort Gastrointestinal (Abdomen) Inspection/Auscultation: + abdominal surgical incision (c/d/i) and + abdominal surgical drain present (x2 serosang) Percussion/Palpation: abdomen soft; abdomen nontender Discharge Data Allergies Allergy/AdvReac Type Severity Reaction Status Date / Time No Known Drug Allergies Allergy Unknown Verified 05/22/22 09:00 Consultations 05/25/22 08:14 Consult Hospitalist Routine Procedures Performed Operation Date: 05/22/22 10:15 Actual Procedures p Open Recurrent Ventral Hernia Repair, Component Separation, Abdominal Wall Reconstruction, Placement of Biological Mesh, (Not Applicable) - Thomas Hopkins DO s Panniculectomy - Thomas Hopkins DO Hospital Course (1) H/O ventral hernia repair: This is a 56yF who presented to the [facility] on 05/22/22 for an elective surgical procedure with Dr. Hopkins. She underwent a ventral hernia repair with compon ent separation, abdominal wall reconstruction with mesh placement, and panniculectomy. The patient tolerated the procedure well, see op note for full details. She recovered in the PACU and was transferred to the med/surg unit in stable condition. POD#0 she had a NAPRAPATH for pain control, yoo catheter, IV abx and IVF. She wore an abdominal binder and had IRIS drain x2 in place. POD#1 the patient transitioned off the NAPRAPATH to a combination of IV and oral pain medication as needed. Her diet was advanced from clear liquids to regular. DVT prophylaxis started. Activity and pulmonary toilet encouraged. POD#3 yoo catheter removed. Overall doing well. Had some hypoxia and the hospitalist were consulted for their assistance with this for the remainder of her hospitalization. CXR showed atelectasis with mild pulmonary edema. IVF discontinued and she did receive a couple doses of lasix. Ultimately she was able to wean off supplemental O2 to room air. On POD#4 she continued to make progress as above, tolerating diet, pain manageable. Working on weaning off nasal cannula. On 05/27/22 she was ultimately deemed stable for discharge to home. RN provided IRIS drain teaching. She was tolerating a regular diet and pain controlled. Voiding and ambulating without issues. Oxygenating well on room air. She was instructed to follow up with Dr. Hopkins within 1 week. She was given a prescription for po pain meds and antibiotic to complete at home. Total Time Total Time Spent Total Time Spent (In Minutes): 20 Discharge Plan Discharge Items Patient Disposition: Home - Self-Care Reason For Visit: PANNICULECTOMY Discharge Diagnosis: ventral hernia repair panniculectomy Activity: Per Instructions section Lifting: No more than 10 pounds Bathing Comment: keep incisions dry until your follow up. may sponge bath otherwise Exercise/Sports: Wait until after follow-up appointment Driving/Machine Use: no driving until cleared by the surgeon Non-emergency contact: Surgeon Call non-emergency contact if: you have any medication questions, your symptoms worsen, your pain is concerning for you, you have a fever, your temperature is above 101.5, your wound has increased redness, your wound has increased drainage and your wound pain has increased Follow-up/Referrals: Blas Obrien MD [Physician] - 06/03/22 1:00 pm (Please arrive 15 minutes prior to appointment time. Please have old neurology records sent to office via fax) Thomas Hopkins DO [Surgeon] - 06/02/22 11:45 am (Please call to schedule follow up in clinic within 1 week) Ricco Chopra MD [Physician] - 06/16/22 11:30 am (4-6 WEEKS APPT WITH MADAY COLEMAN PA-C) PCP,NO [Primary Care Provider] - Diet: Regular Addtl Attending Provider Instructions: You absolutely should not smoke after this procedure to allow for adequate recovery from your surgery Please care for your surgical drains as you have been instructed prior to discharge from the hospital. Empty drains 2-3x/daily and record the output. Please continue to wear your abdominal binder. You may remove it to sponge bath. Keep incisions dry until your follow up appointment You may purchase Ibuprofen over the counter if needed for additional pain contr ol. Take with food. Take per manufacturers instructions Complete the full course of antibiotic prescribed to you Addtl Dietitian Helper Provider Instructions: From the hospital medicine team - 1. ok to use albuterol inhaler, 2 puffs every 6 hours as needed for cough/wheezing/shortness of breath. 2. continue your flutter valve and incentive spirometer for another 5 days. Your chest x-ray showed "atelectasis" which is when the air sacs in the lungs need a bit more air. We see this after intra-abdominal surgeries. The use of the incentive & flutter valve typically resolve this as well as walking/activity. 3. please have your family doctor recheck your electrolytes (potassium/magnesium) in 5-7 days to ensure they are normal. 4. of note - your phenobarbital level in your blood was within a good range based on testing we ran. Pending Studies at Discharge: No Stand-Alone Forms: My [facility] me, Smoking Cessation Medications and DC Order Prescriptions: New hydrocodone-acetaminophen 5-325 mg tablet 1 - 2 tab PO .q4h- q6h PRN (Reason: pain, for initial therapy, max 6 tabs per day ) Qty: 18 0RF sulfamethoxazole-trimethoprim [Bactrim DS] 800-160 mg tablet 1 tab PO BID 7 Days Qty: 14 0RF albuterol sulfate [Ventolin HFA] 90 mcg/actuation Hfa Aerosol Inhaler 2 puff inhalation Q6H PRN (Reason: shortness of breath or wheezing or cough) Qty: 6.7 0RF Continued phenobarbital 32.4 mg tablet 194.4 mg PO QAM vitamin B complex [B Complex-Vitamin B12] Tablet 1 tab PO QAM Saccharomyces boulardii [Daily Probiotic (S. boulardii)] 250 mg capsule 500 mg PO QAM metoprolol succinate 25 mg tablet extended release 24 hr 25 mg PO QAM Discharge Orders: Discharge Order (Routine); Ordered 05/27/22 Ordered By: Paula Day Admission Data Admit Date/Time: 05/22/22 13:39 Attending Provider: Thomas Hopkins Admit Provider: Thomas Hopkins Primary Care Provider: PCP,NO Other Providers: Sheng Stanley Other Interventions: Discharge Summary Assessment (RN) Last Done: 05/27/22 13:27 Coding Level of Care Code HOSP INP/OBS DISCH 30 MIN/LESS Diagnoses H/O ventral hernia repair Z98.890; Z87.19
== END 2022-05-27 14:34 | disposition home or self-care (01) | DRG 353 ==
LOC: ASU 08:35 → INTOOBSV 13:39 → OBSVTOIN 13:39 → 3N 13:39
DX: Z79.899 Other long term (current) drug therapy; Z86.79 Personal history of other diseases of the circulatory system; Z20.822 Contact with and (suspected) exposure to COVID-19; Y73.2 Prosthetic and other implants, materials and accessory gastroenterology and urology devices associated with adverse incidents; T83.728A Exposure of other implanted mesh into organ or tissue, initial encounter; J44.9 Chronic obstructive pulmonary disease, unspecified; R10.9 Unspecified abdominal pain; J96.01 Acute respiratory failure with hypoxia; Z87.891 Personal history of nicotine dependence; Z90.5 Acquired absence of kidney; R11.0 Nausea; K43.2 Incisional hernia without obstruction or gangrene; E65 Localized adiposity; G40.909 Epilepsy, unspecified, not intractable, without status epilepticus; F17.210 Nicotine dependence, cigarettes, uncomplicated; T85.698A Other mechanical complication of other specified internal prosthetic devices, implants and grafts, initial encounter; R60.0 Localized edema